=== PATIENT | female | born 1965 | race Caucasian/White ===

== ENCOUNTER 2020-04-20 07:05 | Outpatient (CLI) | payer OTHER, SELFPAY ==
[2020-04-20 08:05] LABS: Alanine Aminotransferase 31 U/L (14-59); Alkaline Phosphatase 61 U/L (46-116); Anion Gap 7 mmol/L (8-16); Aspartate Amino Transferase 15 U/L (15-37); Bilirubin,Total 0.6 mg/dL (0.00-1.00); Blood Urea Nitrogen 19 mg/dL (7-18); Calcium 8.7 mg/dL (8.5-10.1); Carbon Dioxide 28 mmol/L (21-32); Chloride 106 mmol/L (98-108); Cholesterol 255 mg/dL (0-200); Estimated Glomerular Filt Rate > 60; Glucose 97 mg/dL (70-99); HDL Direct 71 mg/dL (40-60); LDL Cholesterol Calculated 156 mg/dL (<130); Osmolality Calculated 294 mOsm/kg (285-295); Potassium 4.4 mmol/L (3.5-5.1); Sodium 141 mmol/L (136-145); Total Protein 6.9 g/dL (6.4-8.2); Triglycerides 138 mg/dL (0-150)
== END 2020-04-20 07:06 | disposition home or self-care (01) ==
PROVIDERS: PCP Family Medicine; Visit Provider Physician Assistant
DX: Z00.00 Encounter for general adult medical examination without abnormal findings (principal); E78.5 Hyperlipidemia, unspecified
CPT/HCPCS: 36415; 80053; 80061

== ENCOUNTER 2020-07-10 07:57 | Outpatient (CLI) | payer OTHER, SELFPAY ==
--- NOTE | ~2020-07-10 | MM_ITS ---
EXAMINATION: MM screening [facility] BI w yarelis HISTORY: Screening TECHNIQUE: Craniocaudal and mediolateral oblique 3-D tomosynthesis images were obtained and synthetic 2-D images were generated. CAD analysis was submitted and interpreted. COMPARISON: Comparison to multiple prior studies sequentially, with oldest reviewed study dated 02/2014. BREAST PARENCHYMAL COMPOSITION: The breasts are heterogeneously dense, which may obscure small masses . FINDINGS: There is no evidence of suspicious mass, calcification, or architectural distortion to sugg est malignancy in either breast. There has been no suspicious interval change. IMPRESSION: 1. No mammographic evidence of malignancy. 2. Recommend routine screening mammography in one year. BI-RADS Category 1: Negative Reviewed, dictated and finalized at location A. TEGIC INTELLIGENCE OFFICER
== END 2020-07-10 07:58 | disposition home or self-care (01) ==
LOC: CHSIMG 07:58
PROVIDERS: PCP Family Medicine; Visit Provider Family Medicine
DX: Z12.31 Encounter for screening mammogram for malignant neoplasm of breast (principal)
CPT/HCPCS: 77063; 77067

== ENCOUNTER 2021-07-24 07:48 | Outpatient (CLI) | payer OTHER, SELFPAY ==
--- NOTE | ~2021-07-24 | MM_ITS ---
EXAMINATION: MM screening [facility] BI w yarelis HISTORY: Screening mammogram TECHNIQUE: Craniocaudal and mediolateral oblique 3-D tomosynthesis images were obtained and synthetic 2-D images were generated. CAD analysis was submitted and interpreted. COMPARISON: 05/10/2021, 07/09/2019, 07/06/2018 BREAST PARENCHYMAL COMPOSITION: There are scattered areas of fibroglandular density. FINDINGS: There is no evidence of suspicious mass, calcification, or architectural distortion to sugg est malignancy in either breast. There has been no suspicious interval change. IMPRESSION: 1. No mammographic evidence of malignancy. 2. Recommend routine screening mammography in one year. BI-RADS Category 1: Negative Reviewed, dictated and finalized at location A. ROOM SUPERVISOR
== END 2021-07-24 07:49 | disposition home or self-care (01) ==
LOC: CHSIMG 07:49
PROVIDERS: PCP Family Medicine; Visit Provider Family Medicine
DX: Z12.31 Encounter for screening mammogram for malignant neoplasm of breast (principal)
CPT/HCPCS: 77063; 77067

== ENCOUNTER 2021-08-17 08:26 | Outpatient (CLI) | payer OTHER, SELFPAY ==
--- NOTE | ~2021-08-17 | XR_ITS ---
EXAMINATION: XR knee RT 3V DATE: 08/17/2021 08:48 INDICATION: Right knee pain TECHNIQUE: Three views of the right knee were obtained. COMPARISON: None. FINDINGS: Alignment is normal. No fracture or osteochondral lesion. There is mild tricompartmental os teoarthritis characterized by tiny marginal osteophytes. No joint effusion/synovitis. There is prepa tellar and infrapatellar soft tissue swelling. IMPRESSION: 1. Prepatellar and infrapatellar soft tissue swelling without acute osseous abnormality. Reviewed, dictated and finalized at location A. ORATE FINANCIAL ANALYST IMPRESSION: 1. Prepatellar and infrapatellar soft tissue swelling without acute osseous abn ormality.
== END 2021-08-17 08:27 | disposition home or self-care (01) ==
LOC: CHSIMG 08:29
PROVIDERS: PCP Family Medicine; Visit Provider Orthopaedic Surgery
DX: M25.561 Pain in right knee (principal)
CPT/HCPCS: 73562

== ENCOUNTER 2022-07-26 14:18 | Outpatient (CLI) | payer OTHER, SELFPAY ==
--- NOTE | ~2022-07-26 | MM_ITS ---
EXAMINATION: MM screening [facility] BI w yarelis HISTORY: Screening TECHNIQUE: Craniocaudal and mediolateral oblique 3-D tomosynthesis images were obtained and synthetic 2-D images were generated. CAD analysis was submitted and interpreted. COMPARISON: Comparison to multiple prior studies sequentially, with oldest reviewed study dated 01/2016. BREAST PARENCHYMAL COMPOSITION: The breasts are heterogeneously dense, which may obscure small masses FINDINGS: There is no evidence of suspicious mass, calcification, or architectural distortion to sugg est malignancy in either breast. There has been no suspicious interval change. IMPRESSION: 1. No mammographic evidence of malignancy. 2. Recommend routine screening mammography in one year. BI-RADS Category 1: Negative Reviewed, dictated and finalized at location A. CTOR STRATEGIC PLANNING
== END 2022-07-26 14:19 | disposition home or self-care (01) ==
LOC: CHSIMG 14:20
PROVIDERS: PCP Family Medicine; Visit Provider Family Medicine
DX: Z12.31 Encounter for screening mammogram for malignant neoplasm of breast (principal)
CPT/HCPCS: 77063; 77067

== ENCOUNTER 2023-02-24 08:09 | Outpatient (CLI) | payer OTHER, SELFPAY ==
[2023-02-24 09:00] LABS: Alanine Aminotransferase 16 U/L (14-59); Albumin Level 3.9 g/dL (3.4-5.0); Alkaline Phosphatase 64 U/L (46-116); Anion Gap 9 mmol/L (8-16); Aspartate Amino Transferase 14 U/L (15-37); Bilirubin,Total 0.7 mg/dL (0.00-1.00); Blood Urea Nitrogen 21 mg/dL (7-18); Carbon Dioxide 27 mmol/L (21-32); Chloride 107 mmol/L (98-108); Cholesterol 262 mg/dL (0-200); Estimated Glomerular Filt Rate > 60; Glucose 98 mg/dL (70-99); HDL Direct 59 mg/dL (40-60); LDL Cholesterol Calculated 175 mg/dL (<130); Osmolality Calculated 299 mOsm/kg (285-295); Potassium 4.3 mmol/L (3.5-5.1); Sodium 143 mmol/L (136-145); Total Protein 6.9 g/dL (6.4-8.2); Triglycerides 142 mg/dL (0-150)
== END 2023-02-24 08:10 | disposition home or self-care (01) ==
LOC: CHSLAB 08:12
PROVIDERS: PCP Family Medicine; Visit Provider Physician Assistant
DX: Z13.220 Encounter for screening for lipoid disorders (principal); Z13.1 Encounter for screening for diabetes mellitus
CPT/HCPCS: 36415; 80053; 80061

== ENCOUNTER 2023-07-29 12:24 | Outpatient (CLI) | payer OTHER, SELFPAY ==
--- NOTE | ~2023-07-29 | MM_ITS ---
EXAMINATION: MM screening [facility] w yarelis HISTORY: Screening TECHNIQUE: Craniocaudal and mediolateral oblique 3-D tomosynthesis images were obtained and synthetic 2-D images were generated. CAD analysis was submitted and interpreted. COMPARISON: Comparison to multiple prior studies sequentially, with oldest reviewed study dated 06/2016. BREAST PARENCHYMAL COMPOSITION: The breasts are heterogeneously dense, which may obscure small masses . FINDINGS: There is no evidence of suspicious mass, calcification, or architectural distortion to sugg est malignancy in either breast. There has been no suspicious interval change. IMPRESSION: 1. No mammographic evidence of malignancy. 2. Recommend routine screening mammography in one year. BI-RADS Category 1: Negative Reviewed, dictated and finalized at location A. GE MASTER SPECIALIST
== END 2023-07-29 12:25 | disposition home or self-care (01) ==
LOC: CHSIMG 12:25
PROVIDERS: PCP Family Medicine; Visit Provider Family Medicine
DX: Z12.31 Encounter for screening mammogram for malignant neoplasm of breast (principal)
CPT/HCPCS: 77063; 77067

== ENCOUNTER 2024-08-02 11:51 | Outpatient (CLI) | payer OTHER, SELFPAY ==
--- NOTE | ~2024-08-02 | MM_ITS ---
EXAMINATION: MM screening [facility] BI w yarelis HISTORY: Screening mammogram TECHNIQUE: Craniocaudal and mediolateral oblique 3-D tomosynthesis images were obtained and synthetic 2-D images were generated. CAD analysis was submitted and interpreted. COMPARISON: 07/29/2023, 07/26/2022, 07/24/2021, 07/10/2020 BREAST PARENCHYMAL COMPOSITION:Dense: The breasts are heterogeneously dense, which may obscure small masses. FINDINGS: No suspicious mass, calcification, or architectural distortion are identified in either christie ast to suggest malignancy. There has been no suspicious interval change. IMPRESSION: No mammographic evidence of malignancy. Recommend routine screening mammography in one year. BI-RADS Category 1: Negative Reviewed, dictated and finalized at location . RAL ENGINEER
--- OUTSIDE RECORDS SUMMARY | 2024-08-02 13:00 | XMS_ITS | Clinical Summary ---
Author Organization [facility] Address [address] [place] [address]. [place] [address] [place] [address] Care Team Providers Care Metal Roofer Name Role Phone Unavailable Primary Care Provider Unavailabl e Social History Tobacco Use Types Packs/Day Years Used Date Smoking Tobacco: Never Assessed Comments Unknown Sex and Gender Information Value Date Recorded Sex Assigned at Not on file Legal Sex Female 6:27 PM CDT Gender Identity Not on file Sexual Orientation Not on file Plan of Treatment Health Maintenance Due Date Last Done Comments Cervical Cancer Screening Pa p Smear (Age 30 to 64) Every 3 Years 1964 Colorectal Cancer Screening Colonoscopy (10 Years) 1964 Annual Physical 10/23/1967 Hepatitis C 1982 DTaP, Tdap and Td Vaccines ( 1 - Tdap) 10/23/1983 Cervical Cancer Screening Pa p with HPV Testing (Age 30 to 64) Every 5 Years 1994 Cervical Cancer Screening with HPV 1994 Mammogram Screening 2004 Zoster Vaccines (1 of 2) 2014 COVID-19 Vaccine (2023-2 5 season) 2024 Influenza Adult (#1) 2024 Meningococcal B Vaccine Aged Out No l onger eligible based on patient's age to complete this topic Meningococcal Vaccine Aged Out No guy jabari eligible based on patient's age to complete this topic Pneumococcal Vaccine: Pediat rics (0 to 5 Years) and At-Risk Patients (6 to 64 Years) Aged Out No longer eligible b ased on patient's age to complete this topic RSV Immunizations Under 20 Months Aged Out No longer eligible based on patient's age to complete this topic
== END 2024-08-02 11:52 | disposition home or self-care (01) ==
LOC: CHSIMG 11:52
PROVIDERS: PCP Family Medicine; Visit Provider Family Medicine
DX: Z12.31 Encounter for screening mammogram for malignant neoplasm of breast (principal)
CPT/HCPCS: 77063; 77067